=== PATIENT | female | born 1950 | race Caucasian/White ===

== ENCOUNTER → 2023-11-25 14:25 | Outpatient (REF) | payer OTHER, SELFPAY | LOC: DHCBC MAIN 14:25 | PROVIDERS: ATTENDING PHYSICIAN Internal Medicine Cardiovascular Disease; FAMILY PHYSICIAN Family Medicine | DX: I42.9 Cardiomyopathy, unspecified (principal); R94.31 Abnormal electrocardiogram [ECG] [EKG]; I45.10 Unspecified right bundle-branch block; R06.02 Shortness of breath | CPT/HCPCS: 93306 ==

== ENCOUNTER → 2024-05-31 11:03 | Outpatient (REF) | payer OTHER, SELFPAY | LOC: RAD 11:03 | PROVIDERS: ATTENDING PHYSICIAN Family Medicine | DX: R59.0 Localized enlarged lymph nodes (principal); R05.2 Subacute cough; J44.9 Chronic obstructive pulmonary disease, unspecified; R06.02 Shortness of breath | CPT/HCPCS: 71046; 76882 ==

== ENCOUNTER → 2024-09-16 09:00 | Outpatient (REF) | payer OTHER, SELFPAY ==
[2024-09-16 13:06] VITALS: BMI 16.7
== END ==
LOC: REG 09:00
PROVIDERS: ATTENDING PHYSICIAN Surgery; FAMILY PHYSICIAN Family Medicine; OTHER PHYSICIAN Internal Medicine Cardiovascular Disease
DX: K41.90 Unilateral femoral hernia, without obstruction or gangrene, not specified as recurrent (principal)
CPT/HCPCS: 36415; 93005

== ENCOUNTER → 2024-09-21 13:59 | Outpatient (REF) | payer OTHER, SELFPAY | LOC: RAD 13:59 | PROVIDERS: ATTENDING PHYSICIAN Internal Medicine Pulmonary Disease; FAMILY PHYSICIAN Family Medicine; REFERRING PHYSICIAN Internal Medicine Critical Care Medicine | DX: J44.9 Chronic obstructive pulmonary disease, unspecified (principal) | CPT/HCPCS: 71250 ==

== ENCOUNTER → 2024-10-28 14:51 | Outpatient (REF) | payer OTHER, SELFPAY | LOC: RCS 14:51 | PROVIDERS: ATTENDING PHYSICIAN Internal Medicine Cardiovascular Disease; FAMILY PHYSICIAN Family Medicine | DX: I42.9 Cardiomyopathy, unspecified (principal); R53.83 Other fatigue | CPT/HCPCS: 93306 ==

== ENCOUNTER → 2024-11-14 12:59 | Outpatient (REF) | payer OTHER, SELFPAY | LOC: HWRAD 12:59 | PROVIDERS: ATTENDING PHYSICIAN Internal Medicine Critical Care Medicine; FAMILY PHYSICIAN Family Medicine | DX: R91.8 Other nonspecific abnormal finding of lung field (principal) | CPT/HCPCS: 71250 ==

== ENCOUNTER → 2025-01-13 13:21 | Outpatient (REF) | payer OTHER, SELFPAY | LOC: RAD 13:21 | PROVIDERS: ATTENDING PHYSICIAN Internal Medicine Infectious Disease; FAMILY PHYSICIAN Family Medicine | DX: J15.1 Pneumonia due to Pseudomonas (principal) | CPT/HCPCS: 71046 ==

== ENCOUNTER 2025-02-13 06:16 | Day surgery (SDC) | payer OTHER, SELFPAY ==
[2025-02-13] VITALS (9 sets, daily range): BP systolic 100–119; BP diastolic 53–67; BMI 18.0
[2025-02-13] MEDS: NORMOSOL-R/PLASMALYTE-A 1000 IV (07:00)
--- NOTE | 2025-02-13 07:07 | HP.FOC2 ---
Focused History & Physical
Chief Complaint
HPI:
Chief Complaint: Right femoral hernia
HPI / Indication for Planned Procedure: Patient is a 74-year-old female previously seen in consultation secondary to intermittent right inguinal/groin area swelling. Pain is worse with standing and walking. Varying in size. Typically goes away
when she lies down. Occasional discomfort no significant pain. No associated GI or symptoms.
Past medical history predominantly notable for her lung disease with chronic COPD and home oxygen dependence typically on 1 L but also utilizes CPAP/BiPAP at night.
Relevant Past Medical History: Other (GERD, history of bladder cancer -TURBT, esophagitis, COPD, osteoporosis, nonischemic cardiomyopathy, lung nodules, allergies,)
Relevant Social History: Negative
Relevant Family History: Negative
Relevant Past Surgical History: Positive for (Cardiac catheterization, TURBT, tubal, left knee scope, cataracts)
Review of Systems
Review of Pertinent Systems: All Systems Negative
Medication
See Medication form for detailed medications: Yes
Medication List (including Herbals & OTC):
aspirin 81 mg tablet,delayed release 81 mg PO DAILY Blood clot prevention/tx 04/06/15
albuterol sulfate 2.5 mg/3 mL (0.083 %) solution for nebulization 2.5 mg inhalation R [id number] PRN sob 04/01/22
benzonatate 100 mg capsule 200 mg PO DAILY 04/01/22
budesonide 0.5 mg/2 mL suspension for nebulization 0.5 mg inhalation DAILY Lung/breathing issues 04/01/22
guaifenesin 600 mg tablet, extended release 12 hr (Mucus Relief ER) 600 mg PO [id number] PRN congestion/cough 04/01/22
lisinopril 2.5 mg tablet 2.5 mg PO HS Blood pressure 04/01/22
acetaminophen 325 mg tablet 650 mg PO Q4H PRN pain 02/08/25
azithromycin 250 mg tablet 250 mg PO DAILY 02/08/25
benzonatate 100 mg capsule 100 mg PO HS 02/08/25
calcium 500 mg (as carbonate)-vitamin D3 10 mcg (400 unit) tablet (Calcium 500 + D) 1 tab PO DAILY 02/08/25
cholecalciferol (vitamin D3) 125 mcg (5,000 unit) tablet (Vitamin D3) 125 mcg PO DAILY 02/08/25
escitalopram oxalate 10 mg tablet 10 mg PO HS 02/08/25
esomeprazole magnesium 40 mg capsule,delayed release 40 mg PO HS 02/08/25
ferrous sulfate 325 mg (65 mg iron) tablet (iron) 325 mg PO MOWEFR 02/08/25
fluticasone 500 mcg-salmeterol 50 mcg/dose blistr powdr for inhalation (Wixela Inhub) 1 inh inhalation BID 02/08/25
levocetirizine 5 mg tablet 5 mg PO HS 02/08/25
magnesium 200 mg tablet 400 - 800 mg PO HS 02/08/25
multivitamin 1 tab PO DAILY 02/08/25
rosuvastatin 5 mg tablet 5 mg PO HS 02/08/25
sennosides 8.6 mg capsule (senna) 8.6 mg PO BID PRN constipation 02/08/25
tiotropium bromide 18 mcg capsule with inhalation device 1 cap inhalation DAILY 02/08/25
Medications Reviewed: Yes
Allergies and Reactions
Patient has Allergies: Yes
Noted Allergies and Reactions:
Allergy/AdvReac Type Severity Reaction Status Date / Time
doxycycline Allergy Severe Anaphylaxis Verified 02/13/25 06:57
Pertinent Physical Exam
All Other Systems: Negative
Head/Neck: Normal
Lungs: Normal
Heart: Normal
Abdomen: Other (Soft, reducible right femoral hernia. Reoccurs while standing.)
Extremities: Normal
Neurological: Normal
Diagnosis / Assessment
74-year-old female presenting for scheduled operative correction symptomatic right femoral hernia
Plan / Procedure
Open right femoral hernia repair with mesh
Anesthesia/Sedation to be done by Anesthesia Provider: Yes
[2025-02-13] MEDS: TYLENOL 1000 MG PO (07:10)
--- NOTE | 2025-02-13 07:10 | W.SUR.PREOP ---
Pre-Operative Surgical Note
-
I have examined this patient prior to the performance of the scheduled procedure.
The patient's condition is unchanged from the time of the current History and
Physical and the patient is able to undergo the scheduled procedure.
--- NOTE | 2025-02-13 09:40 | W.IMMPOSTOP ---
Addendum entered and electronically signed by Vasquez Tena MD 02/13/25 10:00:
#[id number]
Original Note:
Surgical Immed Post Op Note
-
Primary Surgeon: Vasquez Tena MD
Assisting Surgeon: Froilan UGARTE
Pre-op Diagnosis: Right femoral hernia
Post-op Diagnosis: Right femoral hernia
Procedure Performed: Open repair right femoral hernia with mesh
Anesthesia Type: LMA +1% lidocaine and 0.25% Marcaine with epi
Specimen / Cultures: None
Estimated Blood Loss: 8 mL
Complications: None immediate
Operative Findings: Right femoral hernia containing hernia sac with free fluid and preperitoneal fat. Indirect and femoral space normal. Femoral hernia contents reduced without division of inguinal ligament or enlarging defect. Modified
[place] tension-free mesh repair with a 7.5 x 15 cm Bard soft mesh trimmed to accommodate the inguinal space.
== END 2025-02-13 11:06 | disposition home or self-care (01) ==
LOC: SDS 06:16
PROVIDERS: ATTENDING PHYSICIAN Surgery
DX: K41.90 Unilateral femoral hernia, without obstruction or gangrene, not specified as recurrent (principal)
CPT/HCPCS: 49550

== ENCOUNTER → 2025-03-30 13:24 | Outpatient (REF) | payer OTHER, SELFPAY | LOC: RAD 13:24 | PROVIDERS: ATTENDING PHYSICIAN Internal Medicine Rheumatology; FAMILY PHYSICIAN Family Medicine | DX: M81.0 Age-related osteoporosis without current pathological fracture (principal) | CPT/HCPCS: 77080 ==

== ENCOUNTER → 2025-07-04 12:49 | Outpatient (REF) | payer OTHER, SELFPAY | LOC: RAD 12:49 | PROVIDERS: ATTENDING PHYSICIAN Surgery; FAMILY PHYSICIAN Family Medicine | DX: K43.9 Ventral hernia without obstruction or gangrene (principal); R10.31 Right lower quadrant pain | CPT/HCPCS: 74177; Q9967 ==

== ENCOUNTER 2025-09-01 06:23 | Day surgery (SDC) | payer OTHER, SELFPAY ==
[2025-08-18 14:02] VITALS: BMI 18.8
[2025-09-01 10:43] VITALS: BMI 18.8
[2025-09-01 10:44] VITALS: BP 108/70
[2025-09-01] MEDS: NORMOSOL-R/PLASMALYTE-A 1000 IV (10:56)
[2025-09-01] MEDS: TYLENOL 1000 MG PO (11:14)
--- NOTE | 2025-09-01 11:15 | HP.FOC2 ---
Focused History & Physical
Chief Complaint
HPI:
Chief Complaint: Ventral hernia
HPI / Indication for Planned Procedure: 75-year-old female with palpable swelling along the upper midline abdomen. Occasional twinges of discomfort.Physical examination confirmed the presence of a chronically incarcerated, nontender ventral hernia.
Fascial defect likely approximately 1 cm. She presents today for scheduled operative correction.
Relevant Past Medical History: Other (GERD, history of bladder cancer, esophagitis, COPD, osteoporosis, nonischemic cardiomyopathy, bronchiectasis, Pseudomonas colonization of the lungs, Aspergillus bronchitis)
Relevant Social History: Negative
Relevant Family History: Negative
Relevant Past Surgical History: Positive for (Cardiac catheterization, TURBT, tubal ligation, multiple back injections, cataracts, open right femoral hernia repair)
Review of Systems
Review of Pertinent Systems: All Systems Negative
Medication
See Medication form for detailed medications: Yes
Medication List (including Herbals & OTC):
aspirin 81 mg tablet,delayed release 81 mg PO DAILY Blood clot prevention/tx 04/06/15
albuterol sulfate 2.5 mg/3 mL (0.083 %) solution for nebulization 2.5 mg inhalation DAILY 04/01/22
benzonatate 100 mg capsule 200 mg PO HS 04/01/22
budesonide 0.5 mg/2 mL suspension for nebulization 0.5 mg inhalation DAILY Lung/breathing issues 04/01/22
guaifenesin 600 mg tablet, extended release 12 hr (Mucus Relief ER) 600 mg PO [id number] PRN congestion/cough 04/01/22
lisinopril 2.5 mg tablet 2.5 mg PO HS Blood pressure 04/01/22
acetaminophen 325 mg tablet 650 mg PO Q4H PRN pain 02/08/25
azithromycin 250 mg tablet 250 mg PO DAILY 02/08/25
benzonatate 100 mg capsule 100 mg PO DAILY 02/08/25
calcium 500 mg (as carbonate)-vitamin D3 10 mcg (400 unit) tablet (Calcium 500 + D) 1 tab PO DAILY 02/08/25
cholecalciferol (vitamin D3) 125 mcg (5,000 unit) tablet (Vitamin D3) 125 mcg PO DAILY 02/08/25
escitalopram oxalate 10 mg tablet 10 mg PO HS PRN insomnia 02/08/25
esomeprazole magnesium 40 mg capsule,delayed release 40 mg PO HS 02/08/25
ferrous sulfate 325 mg (65 mg iron) tablet (iron) 325 mg PO MOWEFR 02/08/25
fluticasone 500 mcg-salmeterol 50 mcg/dose blistr powdr for inhalation (Wixela Inhub) 1 inh inhalation BID 02/08/25
levocetirizine 5 mg tablet 5 mg PO HS 02/08/25
magnesium 200 mg tablet 400 - 800 mg PO HS 02/08/25
multivitamin 1 tab PO DAILY 02/08/25
rosuvastatin 5 mg tablet 5 mg PO HS 02/08/25
sennosides 8.6 mg capsule (senna) 8.6 mg PO HS 02/08/25
tiotropium bromide 18 mcg capsule with inhalation device 1 cap inhalation DAILY 02/08/25
albuterol sulfate 90 mcg/actuation aerosol inhaler 2 puff inhalation PRN PRN cough 08/25/25
ibuprofen 200 mg tablet (Advil) 200 mg PO ONCE Pain 08/25/25
prednisone 10 mg tablet 10 mg PO DAILY 08/25/25
Medications Reviewed: Yes
Allergies and Reactions
Patient has Allergies: Yes
Noted Allergies and Reactions:
Allergy/AdvReac Type Severity Reaction Status Date / Time
doxycycline Allergy Severe Anaphylaxis Verified 08/25/25 12:40
Pertinent Physical Exam
All Other Systems: Negative
Head/Neck: Normal
Lungs: Normal
Heart: Normal
Abdomen: Other (Chronically incarcerated but soft ventral hernia along the upper central abdominal wall)
Extremities: Normal
Neurological: Normal
Diagnosis / Assessment
75-year-old female presenting for scheduled operative correction symptomatic ventral hernia
Plan / Procedure
Open ventral hernia pair, possible mesh
Anesthesia/Sedation to be done by Anesthesia Provider: Yes
--- NOTE | 2025-09-01 12:12 | W.IMMPOSTOP ---
Addendum entered and electronically signed by Vasquez Tena MD 09/07/25 15:06:
#[id number]
Original Note:
Surgical Immed Post Op Note
-
Primary Surgeon: Vasquez Tena MD
Assisting Surgeon: Ayesha Vaughn PA-C
Pre-op Diagnosis: Ventral hernia
Post-op Diagnosis: Ventral hernia, 1 cm
Procedure Performed: Primary ventral hernia repair
Anesthesia Type: MAC +1% lidocaine with epinephrine/0.25% Marcaine
Specimen / Cultures: None
Estimated Blood Loss: 2 mL
Complications: None immediate
Operative Findings: Preperitoneal fat containing ventral hernia. Fascial defect 1 cm. Closed primarily with buried [id number] Maxon.
The assistance of Ayesha Vaughn PA-C was required due to the complexity of the procedure. During the procedure Ayesha Vaughn PA-C assisted with tissue retraction for adequate exposure during herniorrhaphy, and closure of the incision site.
[2025-09-01 12:20] VITALS: BP 108/70; BP 113/53
[2025-09-01 12:35] VITALS: BP 103/51
[2025-09-01 12:45] VITALS: BP 100/61
[2025-09-01 13:00] VITALS: BP 99/63
[2025-09-01 13:15] VITALS: BP 99/56
== END 2025-09-01 13:18 | disposition home or self-care (01) ==
LOC: SDS 06:23
PROVIDERS: ATTENDING PHYSICIAN Surgery; FAMILY PHYSICIAN Family Medicine; OTHER PHYSICIAN Internal Medicine Cardiovascular Disease
DX: K43.6 Other and unspecified ventral hernia with obstruction, without gangrene (principal)
CPT/HCPCS: 49592; 93005